=== PATIENT | female | born 1975 | race Caucasian/White ===

== ENCOUNTER 2018-01-06 07:03 | Emergency (ER) | payer BC ==
[2018-01-06 07:22] VITALS: BP 118/84
--- NOTE | 2018-01-06 07:52 | UC ---
UC General HPI - HPI Summary HPI Summary: 42 yo female c/o cough, runny nose, sore throat, myalgias progressively worse. Sniffles on Monday, fever on Mon. No rash. No sob / cp. Tired. + GI upset last couple days. + urrutia. + cough min prod - History of Current Complaint Chief Complaint: UCRespiratory Stated Complaint: FLU SYMPTOMS Time Seen by Provider: 01/06/18 07:16 Hx Obtained From: Patient Hx Last Menstrual Period: 12/08/17 Pain Intensity: 7 - Allergy/Home Medications Allergies/Adverse Reactions: Allergies Allergy/AdvReac Type Severity Reaction Status Date / Time No Known Allergies Allergy Verified 01/06/18 07:11 Home Medications: Home Medications D-Methorphan/PE/Acetaminophen [Daytime Cold Multi-Symp Gelcap] 1 each PO PRN [History] PMH/Surg Hx/FS Hx/Imm Hx Previously Healthy: Yes - Surgical History Surgical History: Yes Surgery Procedure, Year, and Place: , 2005, [facility] - Family History Known Family History: Negative: Diabetes - Social History Alcohol Use: None Substance Use Type: None Smoking Status (MU): Never Smoked Tobacco - Immunization History Most Recent Influenza Vaccination: Not the season Review of Systems Constitutional: Fever, Fatigue Skin: Negative Eyes: Negative ENT: Sore Throat, Nasal Discharge Respiratory: Cough Cardiovascular: Negative Gastrointestinal: Other - gi upste Genitourinary: Negative Motor: Negative Neurovascular: Negative Musculoskeletal: Myalgia Neurological: Negative - see hpi Psychological: Negative Is Patient Immunocompromised?: No All Other Systems Reviewed And Are Negative: Yes Physical Exam Triage Information Reviewed: Yes Appearance: Well-Nourished Vital Signs: Initial Vital Signs Temp 98.1 F 01/06/18 07:14 Pulse 97 01/06/18 07:14 Resp 16 01/06/18 07:14 BP 118/84 01/06/18 07:14 Pulse Ox 100 01/06/18 07:14 Vital Signs Reviewed: Yes Eye Exam: Normal ENT: Positive: Pharyngeal erythema - mild post ph redness, no sores noted, TM dull Neck exam: Normal - no mening Neck: Positive: Supple, Nontender Respiratory Exam: Normal - + cough Respiratory: Positive: Chest non-tender, Lungs clear, Normal breath sounds, No respiratory distress Cardiovascular Exam: Normal Cardiovascular: Positive: RRR, No Murmur, Pulses Normal, Brisk Capillary Refill Abdominal Exam: Normal Abdomen Description: Positive: Nontender Bowel Sounds: Positive: Hyperactive Musculoskeletal Exam: Normal Musculoskeletal: Positive: Strength Intact Neurological Exam: Normal Psychological Exam: Normal Skin Exam: Normal Course/Dx - Course Course Of Treatment: INfl + B. D/w pt coa / tx plan. She would like Tamiflu rx. Questions as posed answered to the best of my ability. - Differential Dx - Multi-Symptom Provider Diagnoses: Influenza B Discharge - Discharge Plan Condition: Stable Disposition: HOME Prescriptions: Oseltamivir CAP* [Tamiflu CAP*] 75 mg PO BID #10 cap Patient Education Materials: Influenza (ED) Referrals: Ty Bower MD [Primary Care Provider] - Additional Instructions: Kaden "B"
== END 2018-01-06 08:11 | disposition home or self-care (01) ==
LOC: UCCORT 07:03
DX: J10.1 Influenza due to other identified influenza virus with other respiratory manifestations (principal)
CPT/HCPCS: 87502; 99211; G0463

== ENCOUNTER 2018-06-09 09:30 | Emergency (ER) | payer BC ==
[2018-06-09 10:09] VITALS: BP 111/79
--- NOTE | 2018-06-09 10:37 | UC ---
Head Injury HPI - HPI Summary HPI Summary: hit her head (occipital area) on the rail of a loft bed x 2 days ago. No LOC, no previous concussion hx. Today has increasein diffuse headache without photophobia. Does have nausea but no vomiting. Decreased focus yesterday, no visual blurring, no mental confusion. Drove herself today. Took 400mg of ibuprofen this am with some relief of pain. - History Of Current Complaint Chief Complaint: UCHeadInjury Stated Complaint: HEADACHE (HIT HEAD 2 DAYS AGO) Time Seen by Provider: 06/09/18 10:23 Hx Obtained From: Patient Hx Last Menstrual Period: 12/08/17 Onset/Duration: Gradual Onset, Lasting Days - 2 Severity Currently: Mild Severity Initially: Moderate Pain Intensity: 8 Character: Dull, Throbbing Aggravating Factor(s): Other - movement Alleviating Factor(s): Other - ibuprofen Associated Signs And Symptoms: Positive: Neck Pain, Nausea - Risk Factors SDH Risk Factor: Negative - Allergies/Home Medications Allergies/Adverse Reactions: Allergies Allergy/AdvReac Type Severity Reaction Status Date / Time No Known Allergies Allergy Verified 06/09/18 10:03 PMH/Surg Hx/FS Hx/Imm Hx Previously Healthy: Yes Psychological History: Depression - on prozac x 1 year with good effect - Surgical History Surgical History: Yes Surgery Procedure, Year, and Place: , 2005, [facility]. D&C- polypectomy - Family History Known Family History: Positive: Hypertension - father, Diabetes - father, Other Family History: mother has fibromyalgia - Social History Occupation: Employed Full-time Alcohol Use: None Substance Use Type: None Smoking Status (MU): Never Smoked Tobacco - Immunization History Most Recent Influenza Vaccination: Not the season Review of Systems Gastrointestinal: Nausea Musculoskeletal: Myalgia Neurological: Headache Is Patient Immunocompromised?: No All Other Systems Reviewed And Are Negative: Yes Physical Exam Triage Information Reviewed: Yes Appearance: Well-Appearing, Pain Distress - mild to moderate Vital Signs: Initial Vital Signs Temp 98 F 06/09/18 10:04 Pulse 73 06/09/18 10:04 Resp 16 06/09/18 10:04 BP 111/79 06/09/18 10:04 Pulse Ox 100 06/09/18 10:04 Eye Exam: Other - SARANYA, no photophobia. Normal EOM. Normal visual roca by confrontation. Eyes: Positive: Conjunctiva Clear ENT: Positive: Pharynx normal, TMs normal Neck: Positive: Tenderness @ - paraspinal muscles. ROM--pain with forward flexion and extension, mild restriction of rotation both right and left. Respiratory: Positive: Lungs clear, Normal breath sounds Cardiovascular: Positive: RRR, No Murmur Neurological Exam: Other - CNII-XII normal. No pronator drift, no past pointing. Gait normal, neg Romberg's, mild ataxia but can walk heel to toe. Neurological: Positive: Alert, Muscle Tone Normal Psychological Exam: Normal Skin Exam: Normal, Other - tenderness occipital area to the right, no palpable hematoma. Head Injury Course/Dx - Course Course Of Treatment: rest and observation; ibuprofen for pain. - Differential Dx/Diagnosis Provider Diagnoses: mild concussion Discharge - Sign-Out/Discharge Documenting (check all that apply): Patient Departure - Discharge Plan Condition: Stable Disposition: HOME Patient Education Materials: Concussion (ED) Forms: *Work Release Referrals: Ty Bower MD [Primary Care Provider] - Additional Instructions: Use ibuprofen 800mg up to 3 times daily for relief of pain. Use warm compresses to the neck to relieve muscle spasm. Treatment of mild concussion includes rest, screen avoidance, decreased stimulation. Follow up with Dr. Foster on Monday if you are not improving. If your symptoms worsen, please go to the ER to consider imaging studies. - Billing Disposition and Condition Condition: STABLE Disposition: Home
== END 2018-06-09 11:00 | disposition home or self-care (01) ==
LOC: UCCORT 09:30
DX: S06.0X0A Concussion without loss of consciousness, initial encounter (principal); W22.09XA Striking against other stationary object, initial encounter; Y93.9 Activity, unspecified; Y92.003 Bedroom of unspecified non-institutional (private) residence as the place of occurrence of the external cause
CPT/HCPCS: 99211; G0463

== ENCOUNTER 2019-04-26 07:03 | Emergency (ER) | payer BC ==
[2019-04-26 07:24] VITALS: BP 126/82
--- NOTE | 2019-04-26 07:50 | UC ---
Eye Complaint HPI - HPI Summary HPI Summary: 44 yo female with nasal congestion and mild sinus pressure x 3 weeks no fever no chills no cp or sob no n/v/d has seasonal allergies...particularly bad this year today woke up with left itchy, red eye which was matted shut - History of Current Complaint Chief Complaint: UCEye Stated Complaint: SINUS,LEFT EYE CONCERN Time Seen by Provider: 04/26/19 07:43 Hx Obtained From: Patient Hx Last Menstrual Period: DOES NOT HAVE REG PERIODS. HAS AN IUD Onset/Duration: Gradual Onset Timing: Constant Severity Initially: Mild Severity Currently: Mild Pain Intensity: 4 Pain Scale Used: 0-10 Numeric Location of Injury: Other - no injury Aggravating Factor(s): Nothing Alleviating Factor(s): Nothing Associated Signs And Symptoms: Positive: Drainage (Purulent) - Allergies/Home Medications Allergies/Adverse Reactions: Allergies Allergy/AdvReac Type Severity Reaction Status Date / Time No Known Allergies Allergy Verified 04/26/19 07:16 Home Medications: Home Medications buPROPion SR TAB* [Wellbutrin SR TAB*] 150 mg PO DAILY 04/26/19 [History Confirmed 04/26/19] PMH/Surg Hx/FS Hx/Imm Hx Previously Healthy: Yes - Surgical History Surgical History: Yes Surgery Procedure, Year, and Place: , 2005, [facility]. D&C- polypectomy - Family History Known Family History: Positive: Hypertension - father, Diabetes - father, Other Family History: mother has fibromyalgia - Social History Alcohol Use: None Substance Use Type: None Smoking Status (MU): Never Smoked Tobacco - Immunization History Most Recent Influenza Vaccination: Not the Review of Systems All Other Systems Reviewed And Are Negative: Yes Constitutional: Positive: Negative Skin: Positive: Negative Eyes: Positive: Eye Redness ENT: Positive: Nasal Discharge, Sinus Congestion Respiratory: Positive: Negative Cardiovascular: Positive: Negative Gastrointestinal: Positive: Negative Genitourinary: Positive: Negative Motor: Positive: Negative Neurovascular: Positive: Negative Musculoskeletal: Positive: Negative Neurological: Positive: Negative Psychological: Positive: Negative Physical Exam Triage Information Reviewed: Yes Appearance: Well-Appearing, No Pain Distress, Well-Nourished Vital Signs: Initial Vital Signs Temp 98.4 F 04/26/19 07:17 Pulse 77 04/26/19 07:17 Resp 16 04/26/19 07:17 BP 126/82 04/26/19 07:17 Pulse Ox 100 04/26/19 07:17 Eyes: Positive: Conjunctiva Inflamed - L, Discharge - L ENT: Positive: Hearing grossly normal, Nasal congestion, TMs normal, Sinus tenderness, Uvula midline. Negative: Nasal drainage, Tonsillar swelling, Tonsillar exudate, Trismus, Muffled voice, Hoarse voice Dental Exam: Normal Neck: Positive: Supple, Nontender, No Lymphadenopathy Respiratory: Positive: Lungs clear, Normal breath sounds, No respiratory distress, No accessory muscle use Cardiovascular: Positive: RRR, No Murmur Musculoskeletal: Positive: ROM Intact, No Edema Neurological: Positive: Alert Psychological Exam: Normal Skin Exam: Normal Eye Complaint Course/Dx - Differential Dx/Diagnosis Provider Diagnosis: Left conjunctivitis, Seasonal allergic rhinitis Discharge - Sign-Out/Discharge Documenting (check all that apply): Patient Departure All imaging exams completed and their final reports reviewed: No Studies - Discharge Plan Condition: Stable Disposition: HOME Prescriptions: Polymyx/Trimethoprim OPTH* [Polytrim OPHTH*] 1 - 2 drop LEFT EYE QID #1 btl Patient Education Materials: Allergic Rhinitis (ED), Conjunctivitis (ED) Referrals: Ty Bower MD [Primary Care Provider] - 4 Days (if not better) Additional Instructions: recheck for eye pain or light sensitivity you can increase your flonase to twice daily while allergies severe use nasal saline spray twice daily before flonase - Billing Disposition and Condition Condition: STABLE Disposition: Home
== END 2019-04-26 07:58 | disposition home or self-care (01) ==
LOC: UCCORT 07:03
DX: J30.2 Other seasonal allergic rhinitis (principal); H10.9 Unspecified conjunctivitis
CPT/HCPCS: 99212; G0463